=== PATIENT | female | born 1950 | race Caucasian/White ===

== ENCOUNTER → 2020-01-08 | Outpatient (CLI) | payer MEDICARE, OTHER ==
[~2020-01-08] MED LIST: AMOXICILLIN875 MG PO; ASPIRIN EC81 MG PO; CLONIDINE1 EACH TD; DOXYCYCLINE HYC50 MG PO; FOSAMAX70 MG PO; HYDROCODON-ACE1 EAC6 PO; LANTUS SOL100 UNIT/1 SQ; LASIX40 MG PO; MYCOSTATIN POWD15 GM TOP; NITROGLYCERIN0.4 MG SL; NORVASC5 MG PO; TOPROL XL25 MG PO; VITAMIN B-12100 MCG PO; VITAMIN B-121000 MC3 PO; VITAMIN D3125 MCG PO; XANAX0.5 MG PO; XARELTO15 MG PO
== END ==
LOC: WCC 09:58
PROC: 0HRNXK3 Replacement of Left Foot Skin with Nonautologous Tissue Substitute, Full Thickness, External Approach (ICD-10-PCS; principal; 2020-01-08)
DX: E11.621 Type 2 diabetes mellitus with foot ulcer (principal); L97.525 Non-pressure chronic ulcer of other part of left foot with muscle involvement without evidence of necrosis; I73.9 Peripheral vascular disease, unspecified; E66.8 Other obesity; I70.1 Atherosclerosis of renal artery; E11.40 Type 2 diabetes mellitus with diabetic neuropathy, unspecified; Z88.2 Allergy status to sulfonamides; Z79.01 Long term (current) use of anticoagulants; Z79.4 Long term (current) use of insulin; Z79.899 Other long term (current) drug therapy
CPT/HCPCS: Q4133

== ENCOUNTER → 2020-01-22 | Outpatient (CLI) | payer MEDICARE, OTHER | LOC: WCC 10:46 | PROC: 0KBW0ZZ Excision of Left Foot Muscle, Open Approach (ICD-10-PCS; principal; 2020-01-22) | DX: E11.621 Type 2 diabetes mellitus with foot ulcer (principal); L97.525 Non-pressure chronic ulcer of other part of left foot with muscle involvement without evidence of necrosis; L97.508 Non-pressure chronic ulcer of other part of unspecified foot with other specified severity; I70.1 Atherosclerosis of renal artery; I73.9 Peripheral vascular disease, unspecified; E66.8 Other obesity; E11.40 Type 2 diabetes mellitus with diabetic neuropathy, unspecified; Z88.2 Allergy status to sulfonamides; Z79.4 Long term (current) use of insulin; Z79.01 Long term (current) use of anticoagulants; Z79.899 Other long term (current) drug therapy ==

== ENCOUNTER → 2020-02-22 | Outpatient (CLI) | payer MEDICARE, OTHER | LOC: OPSV 10:39 | DX: E08.51 Diabetes mellitus due to underlying condition with diabetic peripheral angiopathy without gangrene (principal) | CPT/HCPCS: G0463 ==

== ENCOUNTER → 2020-03-18 | Outpatient (CLI) | payer MEDICARE, OTHER | LOC: WCC 09:41 | DX: E11.40 Type 2 diabetes mellitus with diabetic neuropathy, unspecified (principal); I73.9 Peripheral vascular disease, unspecified; I10 Essential (primary) hypertension; E66.01 Morbid (severe) obesity due to excess calories; S91.302A Unspecified open wound, left foot, initial encounter; X58.XXXA Exposure to other specified factors, initial encounter | CPT/HCPCS: G0463 ==